=== PATIENT | female | born 2000 | race Two or more races ===

== ENCOUNTER 2024-07-09 19:00 | Emergency (ER) | payer OTHER, SELFPAY ==
[2024-07-09 19:13] VITALS: BP 139/85; PULSE 106; RESP 19; TEMP 36.9; O2SAT 97; BMI 43.0
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
[2024-07-09] MEDS: NAPROXEN 250 MG TABLET 500 MG PO (19:38)
[2024-07-09] MEDS: DIAZEPAM 5 MG TABLET PO (19:38)
== END 2024-07-09 22:22 | disposition home or self-care (01) ==
LOC: SERX 21:41
PROVIDERS: Emergency Provider Emergency Medicine
DX: T14.8XXA Other injury of unspecified body region, initial encounter (principal); V89.2XXA Person injured in unspecified motor-vehicle accident, traffic, initial encounter
CPT/HCPCS: 99282; A9270